=== PATIENT | male | born 1950 | race Asian ===

== ENCOUNTER 2016-04-07 08:22 | Emergency (ER) | payer MEDICAID ==
[~2016-04-07] VITALS: Ht 160 cm; Wt 77.1 kg
[~2016-04-07 08:22] MED LIST: FENOFIBRATE 13134 MG ORAL; KEFLEX500 MG ORAL; NORCO 5-325 TA1 EACH ORAL; UNOBMED
[2016-04-07] MEDS ORDERED: TdaP Vaccine 0.5ml Syr IM ONE (08:30)
--- NOTE | 2016-04-07 08:43 | Emergency Room Report ---
History of Present Illness General Chief Complaint: Pain Source: Patient, Medical Record, EMS, Caregiver Present Illness HPI 65 YOM undomiciled BIBEMS for left hand pain. EMS not sure who called but Navdeep JARAMILLO called ED that patient is NOT undomiciled. Had HD for CKD yesterday and had weakness/dizziness after. However to me, patient denies chest pain, SOB, abd pain, dizziness, weakness. He mentions that he is a "dialysis patient" as an after thought. His primary concern is that he was trying to place another hole in his belt with "something sharp", accidentally punctured his left hand. Not sure on previous tetanus. Didnt clean out wound. Patient also endorses wanting to go to ER because its cold and he doesnt like to be on the streets. Recognized by staff for previous visits for ETOH intoxication. Allergies: Coded Allergies: ASPIRIN (Unverified Allergy, Unknown, 04/07/16) Patient History Past Medical History: old chart reviewed, DM, HTN, renal disease, dialysis Past Surgical History: unable to obtain Pertinent Family History: none Social History: Reports: alcohol use Immunizations: other - tdap not up to date Reviewed Nursing Documentation: PMH: Agreed, PSxH: Agreed Nursing Documentation-PMH Past Medical History: No History, Except For Hx Cardiac Problems: No - ARTHRITIS Hx Hypertension: Yes Hx Asthma: Yes - 2011 ONSET Hx Diabetes: Yes Hx Cancer: No Hx Gastrointestinal Problems: No Hx Dialysis: Yes - Hx Neurological Problems: Yes - MIGRAINE Review of Systems All Other Systems: negative except mentioned in HPI Physical Exam Vital Signs Date Time Temp Pulse Resp B/P Pulse Ox O2 Delivery O2 Flow Rate FiO2 04/07/16 08:11 98.8 80 14 113/66 97 Room Air Sp02 EP Interpretation: reviewed, normal General Appearance: normal inspection, well appearing, no apparent distress, alert, GCS 15, non-toxic, other - malodorous, with multiple suitcases. Not acutely intoxicated Head: normocephalic, atraumatic Eyes: bilateral eye EOMI, bilateral eye PERRL ENT: normal ENT inspection, hearing grossly normal, normal voice Neck: normal inspection, full range of motion, supple, no bony tend Respiratory: normal inspection, lungs clear, normal breath sounds, no respiratory distress, no retraction, no wheezing Cardiovascular #1: regular rate, rhythm, no edema Gastrointestinal: normal inspection Genitourinary: no CVA tenderness Musculoskeletal: normal inspection, back normal, normal range of motion, Mila' s Sign negative Neurologic: normal inspection, alert, oriented x3, responsive, head mechanic III-XII nml as tested, motor strength/tone normal, speech normal, other - ambulates with cane Psychiatric: normal inspection, judgement/insight normal, mood/affect normal Skin: normal inspection, normal color, no rash, other - left palm on ulnar aspect with abrasion to middle outer part of palm. No FB seen or palpated. Not thru and thru. No sign of infection. Lymphatic: normal inspection Medical Decision Making Medicare Attestation I Fortino Horowitz MD hereby attest that the medical record entry for date of service, 01/22/16 accurately reflects signatures/notations that I made in my capacity as MD when I treated/diagnosed the above listed Medicare beneficiary. I attest that this information is true, accurate and complete to the best of my knowledge. I understand that any falsification, omission, or concealment of material fact may subject me to administrative, civil, or criminal liability. This patient warrants hospital admission for extreme of age and has a condition that cannot be treated as outpatient. Diagnostic Impression: Primary Impression: Puncture wound of left hand Qualified Codes: S61.432A - Puncture wound without foreign body of left hand, initial encounter Additional Impressions: Weakness CKD (chronic kidney disease) Qualified Codes: N18.9 - Chronic kidney disease, unspecified Hyperkalemia ER Course Wound well irrigated. No laceration. VSS. No ETOH intox this visit. No sign or symptom concerning for sepsis or systemic illness at this time requiring additional laboratory/imaging evaluation or admission Minor abrasion Cleaned/wrapped Tdap updated Analgesia provided CXR: No acute pulm congestion or PNA Labs: HyperK 5.8. Elevated serumCr (baseline). BNP normal. Troponin normal. H&H stable. No leuks ECG: NSR, no ischemia. No peaked Twaves A: Patient still c/o weakness. Navdeep JARAMILLO present states patient never this weak , doesnt think he can ambulate on his own. No focal neuro deficits Low suspicion for CVA as no acute focal deficits or decreased motor strength in extremities Weakness likely related to CKD on HD Endorsed to Dr Chacon at 1256pm for tele admission to [facility] EKG Diagnostic Results Rate: normal Rhythm: NSR ST Segments: no acute changes ASA given to the pt in ED: No Rhythm Strip Diag. Results EP Interpretation: yes Rate: 84 Rhythm: NSR, no PVC's, no ectopy Chest X-Ray Diagnostic Results EP Interpretation: Yes Findings: no consolidation, no effusion, no pneumothorax, no acute cardiopulmonary disease Number of Views: 1 Last Vital Signs Date Time Temp Pulse Resp B/P Pulse Ox O2 Delivery O2 Flow Rate FiO2 04/07/16 08:11 98.8 80 14 113/66 97 Room Air Status: improved Disposition: ADMITTED INPATIENT Condition: Serious FORTINO HOROWITZ M.D. Apr 07, 2016 08:43
[2016-04-07 09:02] VITALS: BP 113/66
[2016-04-07 09:43] LABS: BASOPHILS % (AUTO) 0.8 % (0.0-2.0); EOSINOPHILS % (AUTO) 1.7 % (0.0-3.0); LYMPHOCYTES % (AUTO) 20.5 % (20.0-45.0); MEAN CORPUSCULAR HEMOGLOBIN 30.5 PG (27.0-31.0); MEAN CORPUSCULAR HGB CONC 31.9 G/DL (32.0-36.0); MEAN CORPUSCULAR VOLUME 96 FL (80-99); MEAN PLATELET VOLUME 5.3 FL (6.5-10.1); MONOCYTES % (AUTO) 14.8 % (1.0-10.0); NEUTROPHILS % (AUTO) 62.3 % (45.0-75.0); PLATELET COUNT 270 K/UL (150-450); RED BLOOD COUNT 3.52 M/UL (4.70-6.10); RED CELL DISTRIBUTION WIDTH 13.3 % (11.6-14.8); WHITE BLOOD COUNT 5.7 K/UL (4.8-10.8)
[2016-04-07 09:56] LABS: TROPONIN I < 0.30 ng/mL (<=0.30)
[2016-04-07 09:59] LABS: ALBUMIN/GLOBULIN RATIO 1.1 (1.0-2.7); CALCIUM 9.2 mg/dL (8.6-10.2); CREATININE 6.2 mg/dL (0.7-1.2); GLOMERULAR FILTRATION RATE 9.1 mL/min (>60); POTASSIUM 5.8 mEQ/L (3.4-4.9); TOTAL PROTEIN 7.5 g/dL (6.6-8.7)
[2016-04-07 10:10] LABS: CKMB 3.2 ng/mL (< 6.7)
--- NOTE | 2016-04-07 10:29 | Diagnostic Imaging Report ---
Clinical history: Cough. Technique: Portable AP chest radiograph was obtained. Comparison: 12/21/12. Findings: There is mild cardiomegaly without overt vascular congestion. Atherosclerotic calcification of the aortic arch is noted. Lung volumes are low. There is no focal consolidation to suggest pneumonia. There is no pleural effusion or pneumothorax. The bony thorax is unremarkable. Impression: 1. Borderline cardiomegaly without overt vascular congestion. 2. Atherosclerotic vascular disease.
[2016-04-07] MEDS ORDERED: Albuterol ud Inhalation HHN ONE (10:30)
[2016-04-07 12:00] VITALS: BP 117/67
[2016-04-07 14:47] VITALS: BP 127/66
[2016-04-07 14:49] VITALS: BP 127/66
--- NOTE | 2016-04-08 10:03 | Cardiology Report ---
APPROVED REPORT EKG Measurement Heart [id number] Normal sinus rhythm Normal ECG
== END 2016-04-07 14:51 | disposition short-term general hospital (02) ==
LOC: EDBD 08:22 → EMR 09:02 → EDBEDREQ 11:01 → EMR 14:51
DX: S61.432A Puncture wound without foreign body of left hand, initial encounter (principal); X58.XXXA Exposure to other specified factors, initial encounter; Y92.9 Unspecified place or not applicable; I12.0 Hypertensive chronic kidney disease with stage 5 chronic kidney disease or end stage renal disease; N18.6 End stage renal disease; Z99.2 Dependence on renal dialysis; Z23 Encounter for immunization; R53.1 Weakness; E87.5 Hyperkalemia; E11.9 Type 2 diabetes mellitus without complications; Z88.6 Allergy status to analgesic agent; I70.0 Atherosclerosis of aorta
CPT/HCPCS: 36415; 71010; 80053; 82550; 82553; 83880; 84484; 85025; 90471; 90715; 93005; 94640; 94664; 99283

== ENCOUNTER 2016-06-26 23:34 | Emergency (ER) | payer MEDICAID ==
[~2016-06-26] VITALS: Ht 170.2 cm; Wt 72.6 kg
[2016-06-27] MEDS ORDERED: IBUPROFEN600 MG ORAL (03:06)
[2016-06-27 03:18] VITALS: BP 146/76
--- NOTE | 2016-06-27 03:31 | Emergency Room Report ---
History of Present Illness General Chief Complaint: Lower Extremity Injury Source: Patient, EMS Present Illness HPI 65YOM BIBEMS from outside c/o right heel pain. Denies trauma. Walks a lot. States he is concerned for "gout." But denies being formally diagnosed with gout, or on medication for gout, or having swelling of other joints previously. Allergies: Coded Allergies: ASPIRIN (Unverified Allergy, Unknown, 04/07/16) Patient History Past Medical History: none Past Surgical History: none Pertinent Family History: none Social History: Denies: alcohol use, drug use, smoking Immunizations: UTD Reviewed Nursing Documentation: PMH: Agreed, PSxH: Agreed Nursing Documentation-PMH Hx Hypertension: Yes Hx Asthma: Yes - 2012 ONSET Hx Diabetes: Yes Hx Cancer: No Hx Gastrointestinal Problems: No Hx Dialysis: Yes - [facility] Hx Neurological Problems: Yes - MIGRAINE Review of Systems All Other Systems: negative except mentioned in HPI Physical Exam Vital Signs Date Time Temp Pulse Resp B/P Pulse Ox O2 Delivery O2 Flow Rate FiO2 06/26/16 23:28 98.4 92 16 146/76 99 Room Air Sp02 EP Interpretation: reviewed, normal General Appearance: normal inspection, well appearing, no apparent distress, alert, GCS 15, non-toxic Head: normocephalic, atraumatic Eyes: bilateral eye EOMI, bilateral eye PERRL ENT: normal ENT inspection, hearing grossly normal, normal voice Neck: normal inspection, full range of motion, supple, no bony tend Respiratory: normal inspection, lungs clear, normal breath sounds, no respiratory distress, no retraction, no wheezing Cardiovascular #1: regular rate, rhythm, no edema Gastrointestinal: normal inspection, normal bowel sounds, non tender, soft, no guarding, no hernia Genitourinary: no CVA tenderness Musculoskeletal: normal inspection, back normal, normal range of motion, Mila' s Sign negative, other - Right heel: ++ttp. No signs of trauma. Heel is warm. No erythema, swelling, effusion. Neurologic: normal inspection, alert, oriented x3, responsive, sewer pipe sorter III-XII nml as tested, motor strength/tone normal, speech normal Psychiatric: normal inspection, judgement/insight normal, mood/affect normal Skin: normal inspection, normal color, no rash Lymphatic: normal inspection Medical Decision Making Diagnostic Impression: Primary Impression: Foot pain Qualified Codes: M79.671 - Pain in right foot ER Course Right foot point VSS> Afebrile. No sign of cellulitis Unlikely gout Ibuprofen given in ED When being discharged, patient asks "I'm not being admitted?" "How do I get home?" I suspect patient is homeless I suspect patient is malingering for fdc as well Last Vital Signs Date Time Temp Pulse Resp B/P Pulse Ox O2 Delivery O2 Flow Rate FiO2 06/27/16 03:18 98.4 16 146/76 99 Room Air 06/26/16 23:28 92 Status: improved Disposition: HOME, SELF-CARE Condition: Improved Scripts Ibuprofen* (MOTRIN*) 600 Mg Tablet 600 MG ORAL THREE TIMES A DAY for For Pain, #30 TAB 0 Refills Prov: FORTINO HOROWITZ M.D. 06/27/16 Patient Instructions: Foot Sprain Additional Instructions: - Keep feet clean/dry - Take ibuprofen up to 3x a day with food for pain FORTINO HOROWITZ M.D. June 27, 2016 03:31
== END 2016-06-27 03:19 | disposition home or self-care (01) ==
LOC: EDBD 23:34 → EMR 23:54
DX: Z79.82 Long term (current) use of aspirin (principal); I10 Essential (primary) hypertension; J45.909 Unspecified asthma, uncomplicated; E11.9 Type 2 diabetes mellitus without complications; G43.909 Migraine, unspecified, not intractable, without status migrainosus; Z99.2 Dependence on renal dialysis
CPT/HCPCS: 99283

== ENCOUNTER 2017-04-29 23:11 | Emergency (ER) | payer MEDICAID ==
[~2017-04-29] VITALS: Ht 170.2 cm; Wt 72.6 kg
[~2017-04-29 23:11] MED LIST changes: +AMLODIPINE BESY10 MG ORAL; +AMOXICILLIN500 MG ORAL; +ATORVASTATIN CA20 MG ORAL; +BENAZEPRIL HCL10 MG ORAL; +CALCIUM ACETAT667 M1 PO; +CALCIUM CARBON650 M3 PO; +CALCIUM WITH V1 EACH PO; +CLONIDINE0.1 MG PO; +IBUPROFEN600 MG ORAL; +Insulin; +LISINOPRIL5 MG ORAL; +OMEPRAZOLE20 M2 ORAL; +OSCAL D500 MG PO; +PANTOPRAZOLE SO40 MG ORAL; +PHOSLO667 M1 PO; +RANITIDINE HCL150 MG ORAL; +[UNRECOGNIZED DRUG - MIXTURE]
[2017-04-30 00:29] LABS: APPEARANCE,URINE CLEAR; BASOPHILS % (AUTO) 1.6 % (0.0-2.0); BILIRUBIN, URINE NEGATIVE (NEGATIVE); COLOR,URINE PALE YELLOW; EOSINOPHILS % (AUTO) 1.8 % (0.0-3.0); GLUCOSE, URINE (UA) 2+ (NEGATIVE); HEMATOCRIT 24.7 % (42.0-52.0); HEMOGLOBIN 8.9 G/DL (14.2-18.0); KETONES,URINE NEGATIVE (NEGATIVE); LEUKOCYTE ESTERASE ,URINE NEGATIVE (NEGATIVE); LYMPHOCYTES % (AUTO) 11.4 % (20.0-45.0); MEAN CORPUSCULAR VOLUME 95 FL (80-99); NEUTROPHILS % (AUTO) 70.3 % (45.0-75.0); NITRITE,URINE NEGATIVE (NEGATIVE); PH,URINE 8 (4.5-8.0); PLATELET COUNT 242 K/UL (150-450); PROTEIN,URINE 4+ (NEGATIVE); RED BLOOD COUNT 2.61 M/UL (4.70-6.10); RED CELL DISTRIBUTION WIDTH 11.9 % (11.6-14.8); UROBILINOGEN,URINE NORMAL MG/DL (0.0-1.0); WHITE BLOOD COUNT 6.2 K/UL (4.8-10.8)
[2017-04-30 00:35] LABS: ANION GAP 10 mmol/L (5-15); BLOOD UREA NITROGEN 39 mg/dL (7-18); CALCIUM 7.7 MG/DL (8.5-10.1); CARBON DIOXIDE 25 MMOL/L (21-32); CHLORIDE 93 MMOL/L (98-107); POTASSIUM 4.5 MMOL/L (3.5-5.1); SODIUM 128 MMOL/L (136-145)
[2017-04-30] MEDS ORDERED: cloNIDine 0.2mg Tab ORAL ONE (01:00)
--- NOTE | 2017-04-30 01:00 | Emergency Room Report ---
History of Present Illness General Chief Complaint: General Complaint Source: Patient Present Illness HPI This is a 66-year-old male who has a history of high blood pressure and renal failure on hemodialysis. His dialysis days are Friday, and Friday. Patient was brought in by EMS and police because he is gravely disabled. The private amylase that took him from dialysis to home call [address] was filled with trash and is uninhabitable. Patient said he has no heat for over a year. Patient denies any complaint other than his chronic pain. He said his been to multiple ERs over the year. Police want to place him on a 5150 as gravely disabled. Allergies: Coded Allergies: ASPIRIN (Unverified Allergy, Unknown, 04/07/16) Patient History Past Medical History: see triage record, old chart reviewed, renal disease, dialysis Past Surgical History: other Pertinent Family History: none Social History: Denies: smoking Immunizations: other Reviewed Nursing Documentation: PMH: Agreed, PSxH: Agreed Nursing Documentation-PMH Hx Cardiac Problems: Yes Hx Hypertension: Yes Hx Asthma: Yes - 2012 ONSET Hx Diabetes: Yes Hx Cancer: No Hx Gastrointestinal Problems: No Hx Dialysis: Yes - ESRD Hx Neurological Problems: Yes - MIGRAINE Review of Systems Eye: Denies: eye pain, blurred vision ENT: Denies: ear pain, nose congestion, throat swelling Respiratory: Denies: cough, shortness of breath Cardiovascular: Denies: chest pain, palpitations Gastrointestinal: Denies: abdominal pain, diarrhea, nausea, vomiting Musculoskeletal: Denies: back pain, joint pain Skin: Denies: rash Neurological: Denies: headache, numbness Endocrine: Denies: increased thirst, increased urine Hematologic/Lymphatic: Denies: easy bruising All Other Systems: negative except mentioned in HPI Physical Exam Vital Signs Date Time Temp Pulse Resp B/P (MAP) Pulse Ox O2 Delivery O2 Flow Rate FiO2 04/29/17 23:11 98.1 72 16 185/88 98 Room Air 98.1 vitals with high blood pressure Sp02 EP Interpretation: reviewed, normal General Appearance: no apparent distress, alert, Chronically Ill Head: normocephalic, atraumatic Eyes: bilateral eye PERRL, bilateral eye EOMI ENT: hearing grossly normal, normal pharynx Neck: full range of motion, supple, no meningismus Respiratory: chest non-tender, lungs clear, normal breath sounds Cardiovascular #1: regular rate, rhythm, no murmur Gastrointestinal: normal bowel sounds, non tender, no mass, no organomegaly, no bruit, non-distended Musculoskeletal: back normal, normal range of motion Neurologic: alert, oriented x3 Psychiatric: mood/affect normal Skin: warm/dry Medical Decision Making Diagnostic Impression: Primary Impression: ESRD on dialysis Additional Impressions: Failure to thrive in adult Hypertension Qualified Codes: I10 - Essential (primary) hypertension Gravely disabled Hyponatremia ER Course Patient is gravely disabled. Can't take care of himself anymore. He will need longterm placement. He is currently not on a 5150 hold. Explained to the police liaison officer that this is a medical issue and not a psychiatric issue. Patient is willing to go to longterm. I discussed the case with Dr. Welch who works of the patient for [facility]. Lab Results Impression labs unremarkable Last Vital Signs Date Time Temp Pulse Resp B/P (MAP) Pulse Ox O2 Delivery O2 Flow Rate FiO2 04/29/17 23:11 98.1 72 16 185/88 98 Room Air 98.1 Status: improved Disposition: XFER SHT-TRM HOSP Condition: Stable Referrals: [facility]ERR[facility] (PCP) MYRA BARRIGA M.D. Apr 30, 2017 01:00
[2017-04-30 01:38] VITALS: BP 200/82
[2017-04-30 04:19] VITALS: BP 142/64
[2017-04-30 06:30] VITALS: BP 153/68
[2017-04-30 08:37] VITALS: BP 159/75
[2017-04-30 09:00] VITALS: BP 159/75
== END 2017-04-30 09:00 | disposition short-term general hospital (02) ==
LOC: EDBD 23:11 → EDBEDREQ 23:18 → EMR 23:27
DX: I12.0 Hypertensive chronic kidney disease with stage 5 chronic kidney disease or end stage renal disease (principal); E11.22 Type 2 diabetes mellitus with diabetic chronic kidney disease; N18.6 End stage renal disease; Z99.2 Dependence on renal dialysis; J45.909 Unspecified asthma, uncomplicated; Z88.6 Allergy status to analgesic agent; E87.1 Hypo-osmolality and hyponatremia; R62.7 Adult failure to thrive
CPT/HCPCS: 36415; 80048; 81001; 85025; 99285; J0360

== ENCOUNTER 2017-05-28 16:46 | Emergency (ER) | payer MEDICAID ==
[~2017-05-28] VITALS: Ht 165.1 cm; Wt 72.6 kg
[2017-05-28 18:00] VITALS: BP 160/64
[2017-05-28 19:10] LABS: EOSINOPHILS % (AUTO) 3.5 % (0.0-3.0); HEMATOCRIT 27.4 % (42.0-52.0); HEMOGLOBIN 9.5 G/DL (14.2-18.0); LYMPHOCYTES % (AUTO) 15.4 % (20.0-45.0); MEAN CORPUSCULAR VOLUME 97 FL (80-99); MONOCYTES % (AUTO) 18.1 % (1.0-10.0); NEUTROPHILS % (AUTO) 62.1 % (45.0-75.0); PLATELET COUNT 263 K/UL (150-450); RED BLOOD COUNT 2.83 M/UL (4.70-6.10); RED CELL DISTRIBUTION WIDTH 11.9 % (11.6-14.8); WHITE BLOOD COUNT 5.4 K/UL (4.8-10.8)
[2017-05-28 19:23] LABS: ANION GAP 11 mmol/L (5-15); BLOOD UREA NITROGEN 55 mg/dL (7-18); CARBON DIOXIDE 21 MMOL/L (21-32); CHLORIDE 97 MMOL/L (98-107); CREATININE 9.8 MG/DL (0.55-1.30); POTASSIUM 5.8 MMOL/L (3.5-5.1); SODIUM 129 MMOL/L (136-145)
[2017-05-28 19:38] LABS: ALANINE AMINOTRANSFERASE 28 U/L (12-78); ALBUMIN 3.1 G/DL (3.4-5.0); ALBUMIN/GLOBULIN RATIO 0.9 (1.0-2.7); ALKALINE PHOSPHATASE 67 U/L (46-116); ASPARTATE AMINO TRANSFERASE 28 U/L (15-37); BILIRUBIN,TOTAL 0.3 MG/DL (0.2-1.0); CKMB 1.9 NG/ML (0.0-3.6); CREATINE KINASE 87 U/L (26-308)
[2017-05-28] MEDS ORDERED: Sodium Polystyrene Sulfonate 15gm Powder ORAL ONE (20:15)
[2017-05-28] MEDS ORDERED: Calcium Gluconate 1gm/10ml vial IVP ONE (20:15)
--- NOTE | 2017-05-28 21:58 | Emergency Room Report ---
History of Present Illness General Chief Complaint: General Complaint Source: Patient Present Illness HPI 66-year-old male presents ED for evaluation. Brought in by EMS. States he feels weak. Cannot walk. History of end-stage renal disease and gets dialysis Friday. States he got dialysis yesterday emergently at another hospital. Scheduled for dialysis tomorrow. Patient states he cannot get to his dialysis appointments because of the bus. Denies any chest pain or shortness of breath. Denies fevers or chills. No other aggravating relieving factors. Denies any other associated symptoms Allergies: Coded Allergies: ASPIRIN (Unverified Allergy, Unknown, 04/07/16) Patient History Past Medical History: DM, HTN, migraines, renal disease, dialysis Past Surgical History: none Pertinent Family History: none Social History: Denies: smoking, alcohol use, drug use Immunizations: UTD Reviewed Nursing Documentation: PMH: Agreed; PSxH: Agreed Nursing Documentation-PMH Hx Hypertension: Yes Hx Asthma: Yes - 2011 ONSET Hx Diabetes: Yes Hx Cancer: No Hx Gastrointestinal Problems: No Hx Dialysis: Yes - ESRD. Dialysis T-. Hx Neurological Problems: Yes - MIGRAINE Review of Systems All Other Systems: negative except mentioned in HPI Physical Exam Vital Signs Date Time Temp Pulse Resp B/P (MAP) Pulse Ox O2 Delivery O2 Flow Rate FiO2 05/28/17 16:47 98.9 80 14 164/75 98 Room Air 99.0 Sp02 EP Interpretation: reviewed, normal General Appearance: no apparent distress, alert, GCS 15, non-toxic Head: normocephalic, atraumatic Eyes: bilateral eye normal inspection, bilateral eye PERRL ENT: hearing grossly normal, normal pharynx, no angioedema, normal voice Neck: full range of motion, supple/symm/no masses Respiratory: chest non-tender, lungs clear, normal breath sounds, speaking full sentences Cardiovascular #1: regular rate, rhythm, no edema Cardiovascular #2: 2+ carotid (R), 2+ carotid (L), 2+ radial (R), 2+ radial (L) , 2+ dorsalis pedis (R), 2+ dorsalis pedis (L) Gastrointestinal: normal bowel sounds, non tender, soft, non-distended, no guarding, no rebound Rectal: deferred Genitourinary: normal inspection, no CVA tenderness Musculoskeletal: back normal, gait/station normal, normal range of motion, non- tender Neurologic: alert, oriented x3, responsive, motor strength/tone normal, sensory intact, speech normal Psychiatric: judgement/insight normal, memory normal, mood/affect normal, no suicidal/homicidal ideation Reflexes: 3+ bicep (R), 3+ bicep (L), 3+ tricep (R), 3+ tricep (L), 3+ knee (R) , 3+ knee (L) Skin: normal color, no rash, warm/dry, well hydrated Lymphatic: no adenopathy Medical Decision Making Diagnostic Impression: Primary Impression: ESRD (end stage renal disease) on dialysis Additional Impression: Hyperkalemia ER Course Hospital Course 44-year-old F presents ED requesting dialysis. missed dialysis session over the weekend Differential diagnoses include: AK/unstable angina, fluid overload, CHF exacerabation, hyperkalemia, uremia Clinical course Patient placed on stretcher. 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 After initial history and physical I ordered labs, EKG, chest x-ray labs reviewed- BUN/Cr elevated. Na 129, K 5.8. trop negative. no leukocytosis, hemoglobin/hematocrit stable EKG - peaked twwaves in lateral leads Chest x-ray- no acute process given insulin/D50, given calcium. given kayexelate Because of insurance patient will be transferred to [facility]. I feel this is a highly complex case requiring extensive working including EKG/Rhythm strip, Xray/CT/US, Blood/urine lab work, repeat exams while in ED, and administration of strong opiates/narcotics for pain control, admission to hospital or close patient follow up. Diagnosis - esrd on dialysis, hyperkalemia admitted to telemetry in serious condition Labs Test 05/28/17 18:56 White Blood Count 5.4 K/UL (4.8-10.8) Red Blood Count 2.83 M/UL (4.70-6.10) Hemoglobin 9.5 G/DL (14.2-18.0) Hematocrit 27.4 % (42.0-52.0) Mean Corpuscular Volume 97 FL (80-99) Mean Corpuscular Hemoglobin 33.5 PG (27.0-31.0) Mean Corpuscular Hemoglobin Concent 34.7 G/DL (32.0-36.0) Red Cell Distribution Width 11.9 % (11.6-14.8) Platelet Count 263 K/UL (150-450) Mean Platelet Volume 4.6 FL (6.5-10.1) Neutrophils (%) (Auto) 62.1 % (45.0-75.0) Lymphocytes (%) (Auto) 15.4 % (20.0-45.0) Monocytes (%) (Auto) 18.1 % (1.0-10.0) Eosinophils (%) (Auto) 3.5 % (0.0-3.0) Basophils (%) (Auto) 1.0 % (0.0-2.0) Sodium Level 129 MMOL/L (136-145) Potassium Level 5.8 MMOL/L (3.5-5.1) Chloride Level 97 MMOL/L (98-107) Carbon Dioxide Level 21 MMOL/L (21-32) Anion Gap 11 mmol/L (5-15) Blood Urea Nitrogen 55 mg/dL (7-18) Creatinine 9.8 MG/DL (0.55-1.30) Estimat Glomerular Filtration Rate 5.4 mL/min (>60) Glucose Level 123 MG/DL (74-106) Calcium Level 8.0 MG/DL (8.5-10.1) Total Bilirubin 0.3 MG/DL (0.2-1.0) Aspartate Amino Transf (AST/SGOT) 28 U/L (15-37) Alanine Aminotransferase (ALT/SGPT) 28 U/L (12-78) Alkaline Phosphatase 67 U/L (46-116) Total Creatine Kinase 87 U/L (26-308) Creatine Kinase MB 1.9 NG/ML (0.0-3.6) Creatine Kinase MB Relative Index 2.1 Troponin I 0.006 ng/mL (0.000-0.056) Pro-B-Type Natriuretic Peptide 92625 pg/mL (0-125) Total Protein 6.7 G/DL (6.4-8.2) Albumin 3.1 G/DL (3.4-5.0) Globulin 3.6 g/dL Albumin/Globulin Ratio 0.9 (1.0-2.7) EKG Diagnostic Results Rate: normal Rhythm: NSR ST Segments: other - peaked twaves in lateral leads ASA given to the pt in ED: No Rhythm Strip Diag. Results EP Interpretation: yes Rhythm: NSR, no PVC's, no ectopy Chest X-Ray Diagnostic Results Chest X-Ray Diagnostic Results : Chest X-Ray Ordered: Yes # of Views/Limited/Complete: 1 View Indication: Other - weakness EP Interpretation: Yes Interpretation: no consolidation, no effusion, no pneumothorax, no acute cardiopulmonary disease Impression: No acute disease Electronically Signed by: Electronically signed by Nigel Small MD Last Vital Signs Date Time Temp Pulse Resp B/P (MAP) Pulse Ox O2 Delivery O2 Flow Rate FiO2 05/28/17 18:00 77 20 160/64 100 Room Air 05/28/17 16:47 98.9 99.0 Status: improved Disposition: ADMITTED INPATIENT Condition: Serious Referrals: [facility] (PCP) Nigel Small MD May 28, 2017 21:58
[2017-05-28 22:25] VITALS: BP 178/66
[2017-05-28 22:27] VITALS: BP 178/66
--- NOTE | 2017-05-29 12:54 | Diagnostic Imaging Report ---
Indication: Dyspnea Comparison: 04/07/2016 A single view chest radiograph was obtained. Findings: No definite infiltrate or pulmonary vascular congestion identified. The heart is enlarged. The aorta is mildly enlarged consistent with atherosclerotic vascular disease. The bones are osteopenic. Impression: No acute disease
== END 2017-05-28 22:32 | disposition other institution (70) ==
LOC: EDBD 16:46 → EMR 17:45
DX: I12.0 Hypertensive chronic kidney disease with stage 5 chronic kidney disease or end stage renal disease (principal); N18.6 End stage renal disease; Z99.2 Dependence on renal dialysis; E11.9 Type 2 diabetes mellitus without complications; G43.909 Migraine, unspecified, not intractable, without status migrainosus; Z88.6 Allergy status to analgesic agent; J45.909 Unspecified asthma, uncomplicated; E87.5 Hyperkalemia
CPT/HCPCS: 36415; 71045; 80053; 82550; 82553; 82962; 83880; 84484; 85025; 93005; 99285; J0610; J1815

== ENCOUNTER 2017-08-09 12:05 | Emergency (ER) | payer MEDICAID ==
[~2017-08-09] VITALS: Ht 167.6 cm; Wt 81.6 kg
[2017-08-09 12:17] VITALS: BP 162/74
[2017-08-09 12:29] LABS: BASOPHILS % (AUTO) 1.9 % (0.0-2.0); EOSINOPHILS % (AUTO) 2.2 % (0.0-3.0); HEMATOCRIT 25.4 % (42.0-52.0); HEMOGLOBIN 8.4 G/DL (14.2-18.0); LYMPHOCYTES % (AUTO) 12.2 % (20.0-45.0); MEAN CORPUSCULAR VOLUME 91 FL (80-99); MONOCYTES % (AUTO) 15.7 % (1.0-10.0); PLATELET COUNT 236 K/UL (150-450); RED BLOOD COUNT 2.81 M/UL (4.70-6.10); RED CELL DISTRIBUTION WIDTH 15.1 % (11.6-14.8); WHITE BLOOD COUNT 7.1 K/UL (4.8-10.8)
[2017-08-09] MEDS: Nitroglycerin Subl 0.4mg tab SL PRN ×2 (12:40→12:58)
[2017-08-09 12:42] LABS: ANION GAP 14 mmol/L (5-15); BLOOD UREA NITROGEN 72 mg/dL (7-18); CALCIUM 8.4 MG/DL (8.5-10.1); CARBON DIOXIDE 21 MMOL/L (21-32); CHLORIDE 96 MMOL/L (98-107); CREATININE 8.4 MG/DL (0.55-1.30); POTASSIUM 5.8 MMOL/L (3.5-5.1); SODIUM 131 MMOL/L (136-145)
[2017-08-09] MEDS ORDERED: Albuterol/Ipratropium 3ml neb HHN ONE (12:45)
[2017-08-09 12:56] LABS: ALANINE AMINOTRANSFERASE 23 U/L (12-78); ALBUMIN/GLOBULIN RATIO 0.9 (1.0-2.7); ALKALINE PHOSPHATASE 55 U/L (46-116); ASPARTATE AMINO TRANSFERASE 23 U/L (15-37); BILIRUBIN,TOTAL 0.5 MG/DL (0.2-1.0)
[2017-08-09] MEDS ORDERED: Calcium Gluconate 1gm/10ml vial IVP ONE (13:15)
[2017-08-09 13:19] LABS: INR 1.2 (0.9-1.1)
[2017-08-09 13:21] LABS: AMMONIA < 10 umol/L (11-32)
--- NOTE | 2017-08-09 13:45 | Emergency Room Report ---
History of Present Illness General Chief Complaint: Chest Pain Source: Patient, EMS Present Illness HPI Patient is a 66-year-old male who presented after increased chest discomfort as well as increased difficulty breathing. Patient was brought in by EMS. Patient noted to have pain. He had associated nausea. The patient reportedly has had dialysis Friday and Friday. Not gone for dialysis today. Patient reports having dialysis on . He reports having facial swelling normally.the patient denies recent trauma. Allergies: Coded Allergies: ASPIRIN (Verified Allergy, Unknown, 08/09/17) Patient History Past Medical History: see triage record Reviewed Nursing Documentation: PMH: Agreed; PSxH: Agreed Nursing Documentation-PMH Hx Hypertension: Yes Hx Diabetes: Yes Hx Dialysis: Yes - T, , S Review of Systems All Other Systems: negative except mentioned in HPI Physical Exam Vital Signs Date Time Temp Pulse Resp B/P (MAP) Pulse Ox O2 Delivery O2 Flow Rate FiO2 08/09/17 11:43 98.0 81 18 183/84 96 Room Air 98.1 08/09/17 12:17 2.0 08/09/17 13:00 28 Sp02 EP Interpretation: reviewed, normal General Appearance: normal inspection, well appearing, no apparent distress, alert, GCS 15, Chronically Ill Head: atraumatic ENT: normal ENT inspection, hearing grossly normal, normal voice Neck: normal inspection, full range of motion, supple, no bony tend Respiratory: normal inspection, no respiratory distress, no retraction, crackles, wheezing Cardiovascular #1: regular rate, rhythm, no edema Gastrointestinal: normal inspection, normal bowel sounds, non tender, soft, no guarding, no hernia Genitourinary: no CVA tenderness Musculoskeletal: normal inspection, back normal, normal range of motion Neurologic: normal inspection, alert, oriented x3, responsive, penology professor III-XII nml as tested, speech normal Psychiatric: normal inspection, judgement/insight normal, mood/affect normal Skin: normal inspection, normal color, no rash Medical Decision Making Diagnostic Impression: Primary Impression: Chest pain Additional Impressions: Fluid overload Hyperkalemia ER Course patient presented for chest pain. Differential diagnosis included but was not limited to acute coronary syndrome, pulmonary embolism, pneumonia, aortic dissection, shingles, pneumothorax, aortic dissection, esophageal rupture, pericarditis. Because of complexity of patient's case laboratory testing and imaging studies were ordered. EKG interpreted by me showed normal sinus rhythm with peaking of the T waves. The patient was given IV calcium as well as breathing treatment.The laboratory testing showed evidence of hyperkalemia with a potassium of 5.8.The patient was discussed with [facility]. The patient will likely be transferred for further management. Patient was discussed with Dr. Ridley for [facility]. Labs Test 08/09/17 12:10 White Blood Count 7.1 K/UL (4.8-10.8) Red Blood Count 2.81 M/UL (4.70-6.10) Hemoglobin 8.4 G/DL (14.2-18.0) Hematocrit 25.4 % (42.0-52.0) Mean Corpuscular Volume 91 FL (80-99) Mean Corpuscular Hemoglobin 29.9 PG (27.0-31.0) Mean Corpuscular Hemoglobin Concent 33.0 G/DL (32.0-36.0) Red Cell Distribution Width 15.1 % (11.6-14.8) Platelet Count 236 K/UL (150-450) Mean Platelet Volume 4.6 FL (6.5-10.1) Neutrophils (%) (Auto) 68.0 % (45.0-75.0) Lymphocytes (%) (Auto) 12.2 % (20.0-45.0) Monocytes (%) (Auto) 15.7 % (1.0-10.0) Eosinophils (%) (Auto) 2.2 % (0.0-3.0) Basophils (%) (Auto) 1.9 % (0.0-2.0) Prothrombin Time 12.1 SEC (9.30-11.50) Prothromb Time International Ratio 1.2 (0.9-1.1) Activated Partial Thromboplast Time 28 SEC (23-33) Sodium Level 131 MMOL/L (136-145) Potassium Level 5.8 MMOL/L (3.5-5.1) Chloride Level 96 MMOL/L (98-107) Carbon Dioxide Level 21 MMOL/L (21-32) Anion Gap 14 mmol/L (5-15) Blood Urea Nitrogen 72 mg/dL (7-18) Creatinine 8.4 MG/DL (0.55-1.30) Estimat Glomerular Filtration Rate 6.4 mL/min (>60) Glucose Level 93 MG/DL (74-106) Calcium Level 8.4 MG/DL (8.5-10.1) Total Bilirubin 0.5 MG/DL (0.2-1.0) Aspartate Amino Transf (AST/SGOT) 23 U/L (15-37) Alanine Aminotransferase (ALT/SGPT) 23 U/L (12-78) Alkaline Phosphatase 55 U/L (46-116) Ammonia < 10 umol/L (11-32) Troponin I 0.002 ng/mL (0.000-0.056) Total Protein 6.2 G/DL (6.4-8.2) Albumin 3.0 G/DL (3.4-5.0) Globulin 3.2 g/dL Albumin/Globulin Ratio 0.9 (1.0-2.7) Thyroid Stimulating Hormone (TSH) 1.642 uiU/mL (0.358-3.740) Serum Alcohol 4 mg/dL EKG Diagnostic Results Rhythm: NSR ST Segments: no acute changes Rhythm Strip Diag. Results EP Interpretation: yes Rhythm: NSR, no PVC's, no ectopy Last Vital Signs Date Time Temp Pulse Resp B/P (MAP) Pulse Ox O2 Delivery O2 Flow Rate FiO2 08/09/17 13:09 82 15 100 Nasal Cannula 2.0 28 08/09/17 12:58 169/76 08/09/17 12:17 98.1 98.1 Status: unchanged Disposition: ADMITTED INPATIENT Condition: Serious Referrals: [facility] (PCP) Yao Quinonez MD Aug 09, 2017 13:45
--- NOTE | 2017-08-09 14:08 | Diagnostic Imaging Report ---
EXAM: XR Chest, 1 View CLINICAL HISTORY: CP TECHNIQUE: Frontal view of the chest. COMPARISON: No relevant prior studies available. FINDINGS: Lungs: Retrocardiac atelectasis/consolidation. Pleural space: No pneumothorax. Heart: Cardiomegaly and vascular congestion/edema. Mediastinum: Unremarkable. Bones/joints: No acute fracture. IMPRESSION: 1. Cardiomegaly and vascular congestion/edema. 2. Retrocardiac atelectasis/consolidation.
[2017-08-09 14:17] VITALS: BP 145/57
[2017-08-09 15:27] VITALS: BP 174/71
[2017-08-09 15:53] VITALS: BP 174/71
--- NOTE | 2017-08-13 15:28 | Cardiology Report ---
APPROVED REPORT EKG Measurement Heart [id number] Normal sinus rhythm Normal ECG
== END 2017-08-09 15:53 | disposition other institution (70) ==
LOC: EDBD 12:05 → EMR 13:24 → MERGE 13:24 → EMR 15:53
DX: R07.89 Other chest pain (principal); E87.70 Fluid overload, unspecified; E87.5 Hyperkalemia; I10 Essential (primary) hypertension; E11.9 Type 2 diabetes mellitus without complications; Z99.2 Dependence on renal dialysis; Z88.6 Allergy status to analgesic agent
CPT/HCPCS: 36415; 71045; 80053; 80329; 82140; 82962; 84443; 84484; 85025; 85610; 85730; 86850; 86900; 86901; 93005; 94640; 94664; 99285; J0610; J2405; J7620

== ENCOUNTER 2018-07-07 19:45 | Emergency (ER) | payer MEDICAID, OTHER ==
[~2018-07-07] VITALS: Ht 167.6 cm; Wt 86.2 kg
[2018-07-07 20:15] VITALS: BP 138/70
--- NOTE | 2018-07-07 20:19 | NUR ---
ED Nurse Note: Patient was bropught by ambulance from [facility]. Patient missed todays dialysis. AAO x4, BP is 161/98 other VSS at this time.
[2018-07-07 20:55] LABS: BASOPHILS % (AUTO) 1.6 % (0.0-2.0); EOSINOPHILS % (AUTO) 2.3 % (0.0-3.0); HEMATOCRIT 29.7 % (42.0-52.0); MEAN CORPUSCULAR VOLUME 87 FL (80-99); NEUTROPHILS % (AUTO) 69.1 % (45.0-75.0); PLATELET COUNT 180 K/UL (150-450); RED BLOOD COUNT 3.42 M/UL (4.70-6.10); RED CELL DISTRIBUTION WIDTH 15.5 % (11.6-14.8); WHITE BLOOD COUNT 6.5 K/UL (4.8-10.8)
--- NOTE | 2018-07-07 21:05 | NUR ---
AMA: Patient left AMA, Dr. Small explained risk of leaving. SEE AMA FORM.
[2018-07-07 21:20] LABS: ALANINE AMINOTRANSFERASE 37 U/L (12-78); ALBUMIN 4.1 G/DL (3.4-5.0); ALBUMIN/GLOBULIN RATIO 0.9 (1.0-2.7); ALKALINE PHOSPHATASE 98 U/L (46-116); ANION GAP 14 mmol/L (5-15); ASPARTATE AMINO TRANSFERASE 23 U/L (15-37); BILIRUBIN,TOTAL 0.4 MG/DL (0.2-1.0); BLOOD UREA NITROGEN 78 mg/dL (7-18); CALCIUM 9.2 MG/DL (8.5-10.1); CARBON DIOXIDE 24 MMOL/L (21-32); CHLORIDE 96 MMOL/L (98-107); CKMB 2.4 NG/ML (0.0-3.6); CREATINE KINASE 135 U/L (26-308); CREATININE 11.2 MG/DL (0.55-1.30); POTASSIUM 5.9 MMOL/L (3.5-5.1); SODIUM 133 MMOL/L (136-145)
--- NOTE | 2018-07-07 23:56 | Emergency Room Report ---
History of Present Illness General Chief Complaint: Abnormal Labs Source: Patient, EMS Present Illness HPI 67-year-old male presents ED for evaluation. Brought in by EMS from [facility]. Patient states he missed dialysis today. History of end-stage renal disease. Gets dialysis Friday. Denies chest pain or shortness of breath. States he had dialysis last on Friday. When asked patient why he missed dialysis he cannot provide an explanation. No other aggravating relieving factors. Denies any other associated symptoms Allergies: Coded Allergies: ASPIRIN (Unverified Allergy, Unknown, 04/07/16) Patient History Past Medical History: DM, HTN, asthma, psych hx, renal disease, dialysis Past Surgical History: none Pertinent Family History: none Social History: Denies: smoking, alcohol use, drug use Immunizations: UTD Reviewed Nursing Documentation: PMH: Agreed; PSxH: Agreed Nursing Documentation-PMH Hx Hypertension: Yes Hx Asthma: Yes - 2012 ONSET Hx Diabetes: Yes Hx Cancer: No Hx Gastrointestinal Problems: No Hx Dialysis: Yes - ESRD, Fri,,Fri Dialysis (L upper shunt) History Of Psychiatric Problem: Yes - anxiety, depression Hx Neurological Problems: Yes - MIGRAINE Review of Systems All Other Systems: negative except mentioned in HPI Physical Exam Vital Signs Date Time Temp Pulse Resp B/P (MAP) Pulse Ox O2 Delivery O2 Flow Rate FiO2 07/07/18 19:40 97.7 16 18 98 Room Air 07/07/18 20:15 138/70 Sp02 EP Interpretation: reviewed, normal General Appearance: no apparent distress, alert, GCS 15, non-toxic Head: normocephalic, atraumatic Eyes: bilateral eye normal inspection, bilateral eye PERRL ENT: hearing grossly normal, normal pharynx, no angioedema, normal voice Neck: full range of motion, supple/symm/no masses Respiratory: chest non-tender, lungs clear, normal breath sounds, speaking full sentences Cardiovascular #1: regular rate, rhythm, no edema Cardiovascular #2: 2+ carotid (R), 2+ carotid (L), 2+ radial (R), 2+ radial (L) , 2+ dorsalis pedis (R), 2+ dorsalis pedis (L) Gastrointestinal: normal bowel sounds, non tender, soft, non-distended, no guarding, no rebound Rectal: deferred Genitourinary: normal inspection, no CVA tenderness Musculoskeletal: back normal, gait/station normal, normal range of motion, non- tender Neurologic: alert, oriented x3, responsive, motor strength/tone normal, sensory intact, speech normal Psychiatric: judgement/insight normal, memory normal, mood/affect normal, no suicidal/homicidal ideation Reflexes: 3+ bicep (R), 3+ bicep (L), 3+ tricep (R), 3+ tricep (L), 3+ knee (R) , 3+ knee (L) Skin: normal color, no rash, warm/dry, well hydrated Lymphatic: no adenopathy Medical Decision Making Diagnostic Impression: Primary Impression: ESRD (end stage renal disease) on dialysis ER Course Hospital Course 67-year-old M missed dialysis session today Differential diagnoses include: PA/unstable angina, fluid overload, CHF exacerabation, hyperkalemia, uremia Clinical course Patient placed on stretcher. 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 After initial history and physical I ordered labs, EKG, chest x-ray EKGnormal sinus rhythm no acute ischemic changes interpreted by me Patient fused IV access. I explained that we need to place IV in event of abnormal labs and urgent medical treatment. Patient declined. States he is going to leave Patient states he wishes to go home. Understands the risks of leaving. Patient has competency to make his own decisions. Signed AMA form. Transportation arranged [facility]. I feel this is a highly complex case requiring extensive working including EKG/Rhythm strip, Xray/CT/US, Blood/urine lab work, repeat exams while in ED, and administration of strong opiates/narcotics for pain control, admission to hospital or close patient follow up. Diagnosis - ESRD on dialysis patient left ama EKG Diagnostic Results Rate: normal Rhythm: NSR ST Segments: no acute changes ASA given to the pt in ED: No Rhythm Strip Diag. Results EP Interpretation: yes Rhythm: NSR, no PVC's, no ectopy Last Vital Signs Date Time Temp Pulse Resp B/P (MAP) Pulse Ox O2 Delivery O2 Flow Rate FiO2 07/07/18 20:15 97.7 18 138/70 98 Room Air 07/07/18 19:40 16 Status: unchanged Disposition: AGAINST MEDICAL ADVICE Condition: Unknown Referrals: [facility] (PCP) Nigel Small MD July 07, 2018 23:56
--- NOTE | 2018-07-08 11:15 | Diagnostic Imaging Report ---
Indication: Dyspnea Comparison: 05/28/2017 A single view chest radiograph was obtained. Findings: Vascular prominence and interstitial densities demonstrated with cardiomegaly. IMPRESSION: Congestive heart failure
--- NOTE | 2018-07-08 20:21 | Cardiology Report ---
APPROVED REPORT EKG Measurement Heart [id number] Sinus rhythm with 1st degree AV block Right bundle branch block Abnormal ECG
== END 2018-07-07 22:30 | disposition left against medical advice (07) ==
LOC: EDBD 19:45 → CANBEDREQ 21:58 → EMR 22:16
DX: I12.0 Hypertensive chronic kidney disease with stage 5 chronic kidney disease or end stage renal disease (principal); E11.22 Type 2 diabetes mellitus with diabetic chronic kidney disease; N18.6 End stage renal disease; Z99.2 Dependence on renal dialysis; F41.9 Anxiety disorder, unspecified; F32.9 Major depressive disorder, single episode, unspecified; Z88.6 Allergy status to analgesic agent; I45.10 Unspecified right bundle-branch block; I44.0 Atrioventricular block, first degree; R94.31 Abnormal electrocardiogram [ECG] [EKG]
CPT/HCPCS: 36415; 71045; 80053; 82550; 82553; 83880; 84484; 85025; 93005; 99283